=== PATIENT | male | born 1985 | race Caucasian/White ===

== ENCOUNTER 2016-09-30 12:28 | Emergency (ER) | payer MEDICAID ==
[~2016-09-30] VITALS: Ht 195.6 cm; Wt 93.0 kg
[2016-09-30 12:34] VITALS: BP_SYST 132
[2016-09-30] MEDS ORDERED: MECLIZINE HCL 25 MG TABLET (ANITVERT) PO ONE (12:45)
[2016-09-30 13:13] VITALS: BP_SYST 142
== END 2016-09-30 13:13 | disposition home or self-care (01) ==
LOC: SED 12:28
DX: F41.9 Anxiety disorder, unspecified (principal); T43.615A Adverse effect of caffeine, initial encounter; Y92.89 Other specified places as the place of occurrence of the external cause
CPT/HCPCS: 93005; 99283; J8597

== ENCOUNTER 2017-06-26 14:53 | Emergency (ER) | payer MEDICAID ==
[~2017-06-26] VITALS: Ht 195.6 cm; Wt 122.5 kg
--- NOTE | 2017-06-26 14:53 | NUR ---
BROUGHT BACK TO BED #7 AND TRIAGED. REPORT GIVEN TO JAC
[2017-06-26 14:55] VITALS: BP_SYST 148
--- NOTE | 2017-06-26 15:08 | NUR ---
KWADWO WAN,PAC at bedside examining patient.
--- NOTE | 2017-06-26 15:08 | NUR ---
Meet high in ED - 06/26/17 at 1510 by LIZ KWADWO Davis at bedside examining patient.
--- NOTE | 2017-06-26 15:20 | NUR ---
Patient transported to radiology via wheelchair.
--- NOTE | 2017-06-26 15:30 | NUR ---
RETURNED TO ROOM 7.
--- NOTE | 2017-06-26 15:55 | NUR ---
Patient given written and verbal discharge instructions and verbalizes understanding. ER [employer] HELPER MACHINE discussed with patient the results and treatment provided. Patient in stable condition. ID arm band removed. Rx of clindamycin given. Patient educated on pain management and to follow up with PMD. Pain Scale 0/10. Opportunity for questions provided and answered.
[2017-06-26 15:56] VITALS: BP_SYST 139
== END 2017-06-26 15:56 | disposition home or self-care (01) ==
LOC: SED 14:53
DX: S61.011D Laceration without foreign body of right thumb without damage to nail, subsequent encounter (principal); M79.644 Pain in right finger(s); X58.XXXD Exposure to other specified factors, subsequent encounter
CPT/HCPCS: 99284